=== PATIENT | male | born 1950 | race Hispanic/Latino ===

== ENCOUNTER 2018-09-16 18:32 | Emergency (ER) | payer OTHER ==
[2018-09-16] MEDS ORDERED: OXYMETAZOLINE HCL SPRAY 15 ML BOTTLE ONE (18:52)
[2018-09-16 19:09] LABS: BASOPHILS % (AUTO) 0.6 % (0.0-5.0); EOSINOPHILS % (AUTO) 5.6 % (0.0-8.0); LYMPHOCYTES % (AUTO) 23.5 % (21.0-51.0); MEAN CORPUSCULAR HEMOGLOBIN 29.8 pg (27.0-33.0); MEAN CORPUSCULAR HGB CONC 33.3 g/dL (32.0-36.0); MEAN CORPUSCULAR VOLUME 89.3 fL (79-99); MONOCYTES % (AUTO) 8.2 % (3.0-13.0); NEUTROPHILS % (AUTO) 62.1 % (40.0-77.0); NUCLEATED RED BLOOD CELLS 0.1 % (0.0-0.19); PLATELET COUNT (AUTO) 234 K/uL (130-400); RED BLOOD CELL COUNT(AUTO) 5.15 MIL/uL (4.50-6.20); RED CELL DISTRIBUTION WIDTH 13.2 % (11.0-15.5); WHITE BLOOD COUNT (AUTO) 9.8 K/uL (4.8-10.8)
[2018-09-16 19:23] LABS: CREATININE 0.8 mg/dL (0.5-1.5); POTASSIUM 3.9 mmol/L (3.5-5.1)
[2018-09-16 19:27] LABS: ALBUMIN 3.8 g/dL (3.5-5.0); BILIRUBIN,TOTAL 0.5 mg/dL (0.2-1.0); TOTAL PROTEIN, SERUM 7.6 g/dL (6.0-8.3)
[2018-09-16 20:00] LABS: INR 1.04 (0.85-1.15); PARTIAL THROMBOPLASTIN TIME 28.3 SEC (26.3-35.5); PROTHROMBIN TIME 10.9 SEC (9.6-11.6)
[2018-09-16] MEDS ORDERED: CLONIDINE HCL 0.1 MG TABLET ONE (20:01)
== END 2018-09-16 21:07 | disposition home or self-care (01) ==
LOC: EDH 18:32
DX: R04.0 Epistaxis (principal); E78.5 Hyperlipidemia, unspecified; I10 Essential (primary) hypertension; Z72.0 Tobacco use
CPT/HCPCS: 36415; 80053; 85025; 85610; 85730

== ENCOUNTER 2019-06-01 00:22 | Emergency (ER) | payer MEDICARE ==
[2019-06-01 01:04] LABS: BILIRUBIN,URINE Negative (NEGATIVE); COLOR,URINE Yellow (YELLOW); GLUCOSE, URINE (UA) Negative (NEGATIVE); KETONES,URINE Negative (NEGATIVE); LEUKOCYTE ESTERASE ,URINE Trace (NEGATIVE); NITRATE,URINE Negative (NEGATIVE); OCCULT BLOOD,URINE Large (NEGATIVE); PROTEIN,URINE Negative (NEGATIVE); UROBILINOGEN,URINE 0.2 mg/dL (0.2-1.0)
[2019-06-01 01:09] LABS: APPEARANCE,URINE CLEAR (CLEAR)
[2019-06-01 01:17] LABS: BACTERIA,URINE Few /HPF (None Seen); WBC,URINE 0-1 /HPF (0-1)
[2019-06-01 01:18] LABS: AMORPHOUS SEDIMENT,UR Few /LPF (None Seen); SQUAMOUS EPITHELIAL CELL,UR 0-2 /HPF (0-2)
== END 2019-06-01 01:54 | disposition home or self-care (01) ==
LOC: EDH 00:22
DX: R33.9 Retention of urine, unspecified (principal)
CPT/HCPCS: 51702; 81001

== ENCOUNTER 2019-06-02 16:59 | Emergency (ER) | payer MEDICARE | END 2019-06-02 17:56 | disposition home or self-care (01) | LOC: EDH 16:59 | DX: R33.9 Retention of urine, unspecified (principal); I10 Essential (primary) hypertension; E78.5 Hyperlipidemia, unspecified | CPT/HCPCS: 99281 ==

== ENCOUNTER 2019-06-06 12:46 | Emergency (ER) | payer MEDICARE ==
[2019-06-06 13:14] LABS: APPEARANCE,URINE CLOUDY (CLEAR); BILIRUBIN,URINE SMALL (NEGATIVE); COLOR,URINE YELLOW (YELLOW); GLUCOSE, URINE (UA) NEGATIVE (NEGATIVE); KETONES,URINE 5 mg/dL (NEGATIVE); LEUKOCYTE ESTERASE ,URINE SMALL (NEGATIVE); NITRATE,URINE POSITIVE (NEGATIVE); OCCULT BLOOD,URINE LARGE (NEGATIVE); PROTEIN,URINE 100 mg/dL (NEGATIVE); UROBILINOGEN,URINE 0.2 mg/dL (0.2-1.0)
[2019-06-06] MEDS ORDERED: PHENAZOPYRIDINE HCL 200 MG TABLET ONE (13:39)
[2019-06-06 13:41] LABS: BACTERIA,URINE Many /HPF (None Seen)
[2019-06-06 13:42] LABS: CALCIUM OXALATE CRYSTALS,UR Few /LPF (None Seen); SQUAMOUS EPITHELIAL CELL,UR 0-2 /HPF (0-2)
[2019-06-06] MEDS ORDERED: LIDOCAINE HCL-MPF 1% 2ML VIAL ONE (14:03)
[2019-06-06] MEDS ORDERED: CEFTRIAXONE SODIUM 1 GM ONE (14:03)
== END 2019-06-06 14:11 | disposition home or self-care (01) ==
LOC: EDH 12:46
DX: N30.00 Acute cystitis without hematuria (principal); I10 Essential (primary) hypertension; E78.5 Hyperlipidemia, unspecified; Z90.49 Acquired absence of other specified parts of digestive tract; Z72.0 Tobacco use
CPT/HCPCS: 81001; 87077; 87088; 87186; 96372; 99284; J0696; J3490

== ENCOUNTER 2019-06-09 10:48 | Emergency (ER) | payer MEDICARE | END 2019-06-09 12:20 | disposition left against medical advice (07) | LOC: EDH 10:48 | DX: Z46.6 Encounter for fitting and adjustment of urinary device (principal); I10 Essential (primary) hypertension; E78.5 Hyperlipidemia, unspecified; Z72.0 Tobacco use; Z53.21 Procedure and treatment not carried out due to patient leaving prior to being seen by health care provider ==

== ENCOUNTER 2019-06-09 16:30 | Emergency (ER) | payer MEDICARE | END 2019-06-09 17:23 | disposition home or self-care (01) | LOC: EDH 16:30 | DX: Z46.6 Encounter for fitting and adjustment of urinary device (principal); I10 Essential (primary) hypertension; E78.5 Hyperlipidemia, unspecified | CPT/HCPCS: 99281 ==

== ENCOUNTER 2020-03-20 07:05 | Emergency (ER) | payer MEDICARE ==
[2020-03-20 08:17] LABS: APPEARANCE,URINE Cloudy (CLEAR); BILIRUBIN,URINE Negative (NEGATIVE); COLOR,URINE Yellow (YELLOW); GLUCOSE, URINE (UA) Negative (NEGATIVE); KETONES,URINE Negative (NEGATIVE); LEUKOCYTE ESTERASE ,URINE Negative (NEGATIVE); NITRATE,URINE Negative (NEGATIVE); OCCULT BLOOD,URINE Small (NEGATIVE); PH,URINE 7.5 (5.0-8.0); PROTEIN,URINE Negative (NEGATIVE); UROBILINOGEN,URINE 0.2 mg/dL (0.2-1.0)
[2020-03-20 08:29] LABS: WBC,URINE 0-1 /HPF (0-1)
[2020-03-20 08:30] LABS: BACTERIA,URINE None Seen /HPF (None Seen); SQUAMOUS EPITHELIAL CELL,UR 0-2 /HPF (0-2)
[2020-03-20 09:06] LABS: BASOPHILS % (AUTO) 0.2 % (0.0-5.0); EOSINOPHILS % (AUTO) 0.1 % (0.0-8.0); HEMATOCRIT 46.7 % (42-54); MEAN CORPUSCULAR HEMOGLOBIN 29.9 pg (27.0-33.0); MEAN CORPUSCULAR HGB CONC 34.5 g/dL (32.0-36.0); MEAN CORPUSCULAR VOLUME 86.6 fL (79-99); MONOCYTES % (AUTO) 6.3 % (3.0-13.0); NEUTROPHILS % (AUTO) 82.1 % (40.0-77.0); PLATELET COUNT (AUTO) 248 K/uL (130-400); RED BLOOD CELL COUNT(AUTO) 5.39 MIL/uL (4.50-6.20); RED CELL DISTRIBUTION WIDTH 12.7 % (11.0-15.5)
[2020-03-20 09:27] LABS: CREATININE 0.8 mg/dL (0.5-1.5); POTASSIUM 4.3 mmol/L (3.5-5.1)
[2020-03-20 09:32] LABS: BILIRUBIN,TOTAL 0.9 mg/dL (0.2-1.0)
[2020-03-20] MEDS ORDERED: CEFTRIAXONE SODIUM 1 GM ONE (10:10)
[2020-03-20] MEDS ORDERED: SODIUM CHLORIDE 0.9% 50 ML IV ONE (10:11)
== END 2020-03-20 11:25 | disposition home or self-care (01) ==
LOC: EDH 07:05
DX: R33.9 Retention of urine, unspecified (principal); D72.829 Elevated white blood cell count, unspecified; I10 Essential (primary) hypertension; E78.5 Hyperlipidemia, unspecified
CPT/HCPCS: 36415; 51702; 80053; 81001; 85025; 96374; 99284; J0696; 51701

== ENCOUNTER 2020-03-24 10:05 | Emergency (ER) | payer MEDICARE | END 2020-03-24 11:24 | disposition home or self-care (01) | LOC: EDH 10:05 | DX: R33.9 Retention of urine, unspecified (principal); I10 Essential (primary) hypertension; E78.5 Hyperlipidemia, unspecified; Z90.49 Acquired absence of other specified parts of digestive tract; Z72.0 Tobacco use | CPT/HCPCS: 51701; 99281 ==

== ENCOUNTER 2020-05-07 00:27 | Emergency (ER) | payer MEDICARE ==
[2020-05-07 01:57] LABS: APPEARANCE,URINE Clear (CLEAR); BILIRUBIN,URINE Negative (NEGATIVE); COLOR,URINE Yellow (YELLOW); GLUCOSE, URINE (UA) Negative (NEGATIVE); KETONES,URINE Negative (NEGATIVE); LEUKOCYTE ESTERASE ,URINE Negative (NEGATIVE); NITRATE,URINE Negative (NEGATIVE); OCCULT BLOOD,URINE Nonhemolyzed Trace (NEGATIVE); PH,URINE 6.5 (5.0-8.0); PROTEIN,URINE Negative (NEGATIVE); UROBILINOGEN,URINE 0.2 mg/dL (0.2-1.0)
[2020-05-07 02:13] LABS: BACTERIA,URINE None Seen /HPF (None Seen); SQUAMOUS EPITHELIAL CELL,UR Rare /HPF (0-2); WBC,URINE None Seen /HPF (0-1)
== END 2020-05-07 02:14 | disposition home or self-care (01) ==
LOC: EDH 00:27
DX: R33.9 Retention of urine, unspecified (principal); E78.5 Hyperlipidemia, unspecified; I10 Essential (primary) hypertension; Z90.49 Acquired absence of other specified parts of digestive tract; Z72.0 Tobacco use
CPT/HCPCS: 51701; 81001; 87088

== ENCOUNTER 2020-06-22 19:46 | Emergency (ER) | payer MEDICARE ==
[2020-06-22 20:02] LABS: APPEARANCE,URINE CLEAR (CLEAR); BILIRUBIN,URINE NEGATIVE (NEGATIVE); GLUCOSE, URINE (UA) NEGATIVE (NEGATIVE); KETONES,URINE NEGATIVE (NEGATIVE); LEUKOCYTE ESTERASE ,URINE SMALL (NEGATIVE); NITRATE,URINE NEGATIVE (NEGATIVE); OCCULT BLOOD,URINE TRACE-INTACT (NEGATIVE); PROTEIN,URINE NEGATIVE (NEGATIVE); UROBILINOGEN,URINE 0.2 mg/dL (0.2-1.0)
[2020-06-22 20:05] LABS: COLOR,URINE STRAW (YELLOW)
[2020-06-22 20:14] LABS: RBC,URINE 0-1 /HPF (0-1)
[2020-06-22 20:15] LABS: BACTERIA,URINE Rare /HPF (None Seen); MUCUS,URINE Rare LPF (None Seen); SQUAMOUS EPITHELIAL CELL,UR Rare /HPF (0-2)
== END 2020-06-22 20:45 | disposition home or self-care (01) ==
LOC: EDH 19:46
DX: R33.9 Retention of urine, unspecified (principal); I10 Essential (primary) hypertension; E78.5 Hyperlipidemia, unspecified; Z72.0 Tobacco use
CPT/HCPCS: 51701; 81001

== ENCOUNTER 2020-08-13 23:13 | Emergency (ER) | payer MEDICARE ==
[2020-08-13] MEDS ORDERED: TAMSULOSIN HCL 0.4 MG CAP.ER.24H ONE (23:39)
[2020-08-13 23:43] LABS: BASOPHILS % (AUTO) 0.4 % (0.0-5.0); EOSINOPHILS % (AUTO) 3.8 % (0.0-8.0); LYMPHOCYTES % (AUTO) 18.5 % (21.0-51.0); MEAN CORPUSCULAR HEMOGLOBIN 30.3 pg (27.0-33.0); MEAN CORPUSCULAR HGB CONC 34.2 g/dL (32.0-36.0); MEAN CORPUSCULAR VOLUME 88.5 fL (79-99); MONOCYTES % (AUTO) 7.2 % (3.0-13.0); NEUTROPHILS % (AUTO) 69.6 % (40.0-77.0); PLATELET COUNT (AUTO) 276 K/uL (130-400); RED BLOOD CELL COUNT(AUTO) 5.65 MIL/uL (4.50-6.20); RED CELL DISTRIBUTION WIDTH 12.3 % (11.0-15.5); WHITE BLOOD COUNT (AUTO) 11.3 K/uL (4.8-10.8)
[2020-08-14] LABS: CREATININE 0.9 mg/dL (0.5-1.5); POTASSIUM 3.5 mmol/L (3.5-5.1)
[2020-08-14 00:05] LABS: ALBUMIN 4.5 g/dL (3.5-5.0); BILIRUBIN,TOTAL 0.4 mg/dL (0.2-1.0); TOTAL PROTEIN, SERUM 8.7 g/dL (6.0-8.3)
[2020-08-14 00:11] LABS: APPEARANCE,URINE Clear (CLEAR); BILIRUBIN,URINE Negative (NEGATIVE); COLOR,URINE Yellow (YELLOW); GLUCOSE, URINE (UA) Negative (NEGATIVE); KETONES,URINE Negative (NEGATIVE); LEUKOCYTE ESTERASE ,URINE Negative (NEGATIVE); NITRATE,URINE Negative (NEGATIVE); OCCULT BLOOD,URINE Trace (NEGATIVE); PROTEIN,URINE Negative (NEGATIVE); UROBILINOGEN,URINE 0.2 mg/dL (0.2-1.0)
== END 2020-08-14 01:32 | disposition home or self-care (01) ==
LOC: EDH 23:13
DX: R33.9 Retention of urine, unspecified (principal); N32.0 Bladder-neck obstruction; I10 Essential (primary) hypertension; E78.5 Hyperlipidemia, unspecified; Z72.0 Tobacco use
CPT/HCPCS: 36415; 51702; 80053; 81003; 85025

== ENCOUNTER 2020-09-03 22:25 | Emergency (ER) | payer MEDICARE ==
[2020-09-03 23:16] LABS: APPEARANCE,URINE Clear (CLEAR); BILIRUBIN,URINE Negative (NEGATIVE); COLOR,URINE Yellow (YELLOW); GLUCOSE, URINE (UA) Negative (NEGATIVE); KETONES,URINE Negative (NEGATIVE); LEUKOCYTE ESTERASE ,URINE Negative (NEGATIVE); NITRATE,URINE Negative (NEGATIVE); OCCULT BLOOD,URINE Small (NEGATIVE); PROTEIN,URINE Negative (NEGATIVE); UROBILINOGEN,URINE 0.2 mg/dL (0.2-1.0)
[2020-09-03 23:45] LABS: BACTERIA,URINE None Seen /HPF (None Seen); RBC,URINE 0-1 /HPF (0-1); WBC,URINE None Seen /HPF (0-1)
[2020-09-06] MEDS ORDERED: LISI10TA7 PO (09:32)
== END 2020-09-03 23:34 | disposition home or self-care (01) ==
LOC: EDH 22:25
DX: R33.9 Retention of urine, unspecified (principal); I10 Essential (primary) hypertension; E78.5 Hyperlipidemia, unspecified; Z72.0 Tobacco use
CPT/HCPCS: 51702; 81001; 87088

== ENCOUNTER 2020-09-04 16:32 | Inpatient (IN) | payer MEDICARE ==
[~2020-09-04] VITALS: Ht 162.6 cm; Wt 78.3 kg
[2020-09-04] MEDS ORDERED: FENTANYL CITRATE PF 50 MCG/1 ML 2ML VIAL ONE (18:12)
[2020-09-04] MEDS ORDERED: ONDANSETRON 4MG INJ ONE (18:12)
[2020-09-04 18:27] LABS: BASOPHILS % (AUTO) 0.2 % (0.0-5.0); EOSINOPHILS % (AUTO) 0.7 % (0.0-8.0); HEMATOCRIT 47.1 % (42-54); LYMPHOCYTES % (AUTO) 10.3 % (21.0-51.0); MEAN CORPUSCULAR HEMOGLOBIN 30.5 pg (27.0-33.0); MEAN CORPUSCULAR HGB CONC 34.6 g/dL (32.0-36.0); MONOCYTES % (AUTO) 6.4 % (3.0-13.0); PLATELET COUNT (AUTO) 262 K/uL (130-400); RED BLOOD CELL COUNT(AUTO) 5.35 MIL/uL (4.50-6.20); RED CELL DISTRIBUTION WIDTH 12.6 % (11.0-15.5); WHITE BLOOD COUNT (AUTO) 16.8 K/uL (4.8-10.8)
[2020-09-04 18:46] LABS: CREATININE 0.9 mg/dL (0.5-1.5); POTASSIUM 3.6 mmol/L (3.5-5.1)
[2020-09-04 18:47] LABS: INR 1.1 (0.85-1.15); PROTHROMBIN TIME 11.7 SEC (9.6-11.6)
[2020-09-04] MEDS ORDERED: 0.9% NACL 500ML IV.SOLN 500 ML IV ONE (18:47)
[2020-09-04 18:48] LABS: PARTIAL THROMBOPLASTIN TIME 26.5 SEC (26.3-35.5)
[2020-09-04 18:50] LABS: ALBUMIN 4.1 g/dL (3.5-5.0); BILIRUBIN,TOTAL 1.5 mg/dL (0.2-1.0); TOTAL PROTEIN, SERUM 7.9 g/dL (6.0-8.3)
[2020-09-04] MEDS ORDERED: MORPHINE 2 MG SYG IV PRN (20:00)
[2020-09-04] MEDS: 0.9%NACL 1000ML 1,000 ML IV SCH (20:00)
[2020-09-04] MEDS ORDERED: ONDANSETRON 4MG INJ IV PRN (20:00)
[2020-09-04] MEDS ORDERED: LACTULOSE 20 GM/30 ML UDCUP PO PRN (20:00)
[2020-09-04] MEDS: CEFTRIAXONE 1G VIAL IV SCH (20:00)
[2020-09-04] MEDS ORDERED: IOHEXOL-350 75 ML VIAL IV ONE (20:35)
[2020-09-04] MEDS: FAMOTIDINE 20MG TAB PO SCH (21:00)
[2020-09-04] MEDS ORDERED: FAMOTIDINE 20MG TAB ONE (23:09)
[2020-09-04] MEDS ORDERED: CEFTRIAXONE 1G VIAL ONE (23:10)
[2020-09-05] VITALS (23 sets, daily range): BP systolic 114–180; BP diastolic 57–91
[2020-09-05 05:21] LABS: BASOPHILS % (AUTO) 0.3 % (0.0-5.0); EOSINOPHILS % (AUTO) 2.3 % (0.0-8.0); LYMPHOCYTES % (AUTO) 16.2 % (21.0-51.0); MEAN CORPUSCULAR HEMOGLOBIN 30.3 pg (27.0-33.0); MEAN CORPUSCULAR HGB CONC 34.2 g/dL (32.0-36.0); MEAN CORPUSCULAR VOLUME 88.7 fL (79-99); MONOCYTES % (AUTO) 8.5 % (3.0-13.0); NEUTROPHILS % (AUTO) 72.2 % (40.0-77.0); PLATELET COUNT (AUTO) 223 K/uL (130-400); RED BLOOD CELL COUNT(AUTO) 4.85 MIL/uL (4.50-6.20); RED CELL DISTRIBUTION WIDTH 12.6 % (11.0-15.5)
[2020-09-05 05:47] LABS: CREATININE 0.8 mg/dL (0.5-1.5); POTASSIUM 3.7 mmol/L (3.5-5.1)
[2020-09-05] MEDS: 0.9%NACL 1000ML 1,000 ML IV SCH ×2 (06:00→20:26)
[2020-09-05] MEDS: FAMOTIDINE 20MG TAB PO SCH ×2 (09:00→20:25)
[2020-09-05] MEDS ORDERED: LACTATED RINGERS 1000ML 1,000 ML IV ONE (11:52)
[2020-09-05] MEDS ORDERED: CITRIC ACID/SODIUM CITRATE 30 ML UDCUP ONE (11:59)
[2020-09-05] MEDS ORDERED: LIDOCAINE PF 100MG/5ML (2%) SYRINGE 5ML ONE (13:02)
[2020-09-05] MEDS ORDERED: SUCCINYLCHOLINE 200MG/10ML SYR ONE (13:02)
[2020-09-05] MEDS ORDERED: DEXAMETHASONE SOD PHOSPHATE 10MG/ML 1ML VIAL ONE (13:02)
[2020-09-05] MEDS ORDERED: MIDAZOLAM HCL 1 MG/ML 2ML VIAL ONE (13:02)
[2020-09-05] MEDS ORDERED: NEOSTIGMINE 5MG/5ML SYR IV ONE (13:03)
[2020-09-05] MEDS ORDERED: GLYCOPYRROLATE 1 MG/5 ML SYRINGE ONE (13:03)
[2020-09-05] MEDS ORDERED: ONDANSETRON 4MG INJ ONE (13:03)
[2020-09-05] MEDS ORDERED: FENTANYL CITRATE PF 50 MCG/1 ML 2ML VIAL ONE (13:03)
[2020-09-05] MEDS ORDERED: ROCURONIUM 10MG/1ML SYR 10 MG/ML ML ONE (13:03)
[2020-09-05] MEDS ORDERED: PROPOFOL 10 MG/ML 20ML VIAL IV ONE (13:03)
[2020-09-05] MEDS ORDERED: PHENYLEPHRINE HCL 10 MG/ML 1ML VIAL IV ONE (13:27)
[2020-09-05] MEDS: ACETAMINOPHEN 325 MG TAB PO PRN (20:25)
[2020-09-05] MEDS: CEFTRIAXONE 1G VIAL IV SCH (20:25)
[2020-09-06] VITALS (7 sets, daily range): BP systolic 123–154; BP diastolic 63–74
[2020-09-06] MEDS: ACETAMINOPHEN 325 MG TAB PO PRN ×2 (00:08→20:36)
[2020-09-06] MEDS ORDERED: 0.9%NACL 1000ML 1,000 ML IV ONE (00:15)
[2020-09-06 00:32] LABS: HEMATOCRIT 40.1 % (42-54); MEAN CORPUSCULAR HEMOGLOBIN 30.6 pg (27.0-33.0); MEAN CORPUSCULAR HGB CONC 34.2 g/dL (32.0-36.0); MEAN CORPUSCULAR VOLUME 89.5 fL (79-99); PLATELET COUNT (AUTO) 199 K/uL (130-400); RED BLOOD CELL COUNT(AUTO) 4.48 MIL/uL (4.50-6.20); RED CELL DISTRIBUTION WIDTH 12.6 % (11.0-15.5); WHITE BLOOD COUNT (AUTO) 11.8 K/uL (4.8-10.8)
[2020-09-06 00:46] LABS: CARBON DIOXIDE 28 mmol/L (21-32); CHLORIDE 103 mmol/L (101-111); GLOMERULAR FILTR. RATE CALC 79 mL/min (>60); GLUCOSE,RANDOM 127 mg/dL (70-105); POTASSIUM 3.6 mmol/L (3.5-5.1); SODIUM SERUM 140 mmol/L (136-145); UREA NITROGEN, BLOOD 11 mg/dL (7-18)
[2020-09-06 00:51] LABS: ALANINE AMINOTRANSFERASE 75 U/L (12-78); ALBUMIN 3.2 g/dL (3.5-5.0); ASPARTATE AMINOTRANSFERASE 98 U/L (10-37); BILIRUBIN,TOTAL 0.9 mg/dL (0.2-1.0); TOTAL PROTEIN, SERUM 6.5 g/dL (6.0-8.3)
[2020-09-06 00:57] LABS: BASOPHILS % (MANUAL) 1 % (0-2); EOSINOPHILS % (MANUAL) 3 % (1-6); LYMPHOCYTES % (MANUAL) 20 % (22-44); MAN.DIFF COMMENT-IMPRESSION MANUAL DIFFERENTIAL; MONOCYTES % (MANUAL) 10 % (2-9); SEGMENTED NEUTROPHILS % 66 % (40-70)
[2020-09-06 00:58] LABS: PLATELET MORPHOLOGY COMMENT ADEQUATE
[2020-09-06 01:14] LABS: APPEARANCE,URINE Clear (CLEAR); BILIRUBIN,URINE Negative (NEGATIVE); COLOR,URINE Orange (YELLOW); GLUCOSE, URINE (UA) Negative (NEGATIVE); KETONES,URINE Negative (NEGATIVE); LEUKOCYTE ESTERASE ,URINE Small (NEGATIVE); NITRATE,URINE Negative (NEGATIVE); OCCULT BLOOD,URINE Large (NEGATIVE); PROTEIN,URINE Trace mg/dL (NEGATIVE)
[2020-09-06 01:55] LABS: BACTERIA,URINE Few /HPF (None Seen)
[2020-09-06] MEDS: 0.9%NACL 1000ML 1,000 ML IV SCH (09:25)
[2020-09-06] MEDS: FAMOTIDINE 20MG TAB PO SCH ×2 (09:26→20:35)
[2020-09-06] MEDS ORDERED: LISI10TA24 PO (09:32)
[2020-09-06] MEDS: CEFTRIAXONE 1G VIAL IV SCH (20:35)
[2020-09-06] MEDS ORDERED: AZITHROMYCIN 500MG+NS 250ML 250 ML IV ONE (21:47)
[2020-09-06] MEDS: AZITHROMYCIN 500MG+NS 250ML 250 ML IV SCH (21:51)
[2020-09-06 23:40] LABS: CRP QUANTITATIVE 59.8 mg/L (0.00-9.0)
[2020-09-07] MEDS: 0.9%NACL 1000ML 1,000 ML IV SCH ×2 (00:46→17:05)
[2020-09-07] MEDS ORDERED: ERGOCALCIFEROL (VITAMIN D2) 50,000 UNIT CAPSULE PO ONE (01:45)
[2020-09-07 03:45] VITALS: BP 149/71
[2020-09-07 07:00] VITALS: BP 149/75
[2020-09-07 07:18] LABS: BASOPHILS % (AUTO) 0.3 % (0.0-5.0); EOSINOPHILS % (AUTO) 2.3 % (0.0-8.0); HEMATOCRIT 37.6 % (42-54); LYMPHOCYTES % (AUTO) 16.4 % (21.0-51.0); MEAN CORPUSCULAR HEMOGLOBIN 29.9 pg (27.0-33.0); MEAN CORPUSCULAR VOLUME 87.9 fL (79-99); NEUTROPHILS % (AUTO) 65.2 % (40.0-77.0); PLATELET COUNT (AUTO) 175 K/uL (130-400); RED BLOOD CELL COUNT(AUTO) 4.28 MIL/uL (4.50-6.20); RED CELL DISTRIBUTION WIDTH 12.5 % (11.0-15.5); WHITE BLOOD COUNT (AUTO) 7.7 K/uL (4.8-10.8)
[2020-09-07 07:31] LABS: CREATININE 0.7 mg/dL (0.5-1.5)
[2020-09-07 07:32] LABS: POTASSIUM 2.9 mmol/L (3.5-5.1)
[2020-09-07] MEDS ORDERED: LIDOCAINE HCL-MPF 1% 2ML VIAL IV PRN (08:00)
[2020-09-07] MEDS ORDERED: POTASSIUM CHLORIDE 20MEQ/100ML 100 ML IV PRN (08:00)
[2020-09-07] MEDS: ZINC SULFATE 220 CAPSULE PO SCH (09:15)
[2020-09-07] MEDS: FAMOTIDINE 20MG TAB PO SCH ×2 (09:15→20:09)
[2020-09-07] MEDS: ASCORBIC ACID 500 MG TAB PO SCH (09:15)
[2020-09-07] MEDS: POTASSIUM CHLORIDE 10% ELIXIR 20 MEQ/15 ML UDCUP PO PRN ×3 (09:32→17:04)
[2020-09-07 11:00] VITALS: BP 158/79
[2020-09-07 16:00] VITALS: BP 165/83
[2020-09-07 20:00] VITALS: BP 153/73
[2020-09-07] MEDS: CEFTRIAXONE 1G VIAL IV SCH (20:09)
[2020-09-07] MEDS: AZITHROMYCIN 500MG+NS 250ML 250 ML IV SCH (22:07)
[2020-09-08] VITALS: BP 166/79
[2020-09-08] MEDS: ACETAMINOPHEN 325 MG TAB PO PRN ×3 (03:45→20:10)
[2020-09-08 04:00] VITALS: BP 163/82
[2020-09-08 08:46] VITALS: BP 149/74
[2020-09-08] MEDS: ZINC SULFATE 220 CAPSULE PO SCH (09:17)
[2020-09-08] MEDS: ASCORBIC ACID 500 MG TAB PO SCH (09:17)
[2020-09-08] MEDS: FAMOTIDINE 20MG TAB PO SCH ×2 (09:17→20:08)
[2020-09-08 12:29] VITALS: BP 142/71
[2020-09-08 17:14] VITALS: BP 158/77
[2020-09-08] MEDS: 0.9%NACL 1000ML 1,000 ML IV SCH (17:17)
[2020-09-08 18:38] LABS: CREATININE 0.8 mg/dL (0.5-1.5); POTASSIUM 3.3 mmol/L (3.5-5.1)
[2020-09-08] MEDS: CEFTRIAXONE 1G VIAL IV SCH (19:56)
[2020-09-08 20:00] VITALS: BP 160/76
[2020-09-08] MEDS: AZITHROMYCIN 500MG+NS 250ML 250 ML IV SCH (22:45)
[2020-09-09] VITALS: BP 140/72
[2020-09-09] MEDS: KCL 20 MEQ ERTAB PO PRN ×3 (01:55→06:00)
[2020-09-09] MEDS: 0.9%NACL 1000ML 1,000 ML IV SCH (02:46)
[2020-09-09 04:00] VITALS: BP 145/71
[2020-09-09 05:21] LABS: BASOPHILS % (AUTO) 0.3 % (0.0-5.0); EOSINOPHILS % (AUTO) 3.3 % (0.0-8.0); HEMATOCRIT 37.9 % (42-54); LYMPHOCYTES % (AUTO) 16.2 % (21.0-51.0); MEAN CORPUSCULAR HGB CONC 34.6 g/dL (32.0-36.0); MEAN CORPUSCULAR VOLUME 86.9 fL (79-99); MONOCYTES % (AUTO) 12.5 % (3.0-13.0); NEUTROPHILS % (AUTO) 67.3 % (40.0-77.0); PLATELET COUNT (AUTO) 201 K/uL (130-400); RED BLOOD CELL COUNT(AUTO) 4.36 MIL/uL (4.50-6.20); RED CELL DISTRIBUTION WIDTH 12.4 % (11.0-15.5)
[2020-09-09 07:30] VITALS: BP 135/78
[2020-09-09] MEDS: ZINC SULFATE 220 CAPSULE PO SCH (08:51)
[2020-09-09] MEDS: ASCORBIC ACID 500 MG TAB PO SCH (08:51)
[2020-09-09] MEDS: FAMOTIDINE 20MG TAB PO SCH ×2 (08:51→21:22)
[2020-09-09 11:00] VITALS: BP 121/59
[2020-09-09 16:00] VITALS: BP 118/61
[2020-09-09] MEDS ORDERED: 0.9%NACL 50ML 50 ML IV ONE (20:02)
[2020-09-09] MEDS: CEFTRIAXONE 1G VIAL IV SCH (20:08)
[2020-09-09 20:28] VITALS: BP 142/68
[2020-09-09] MEDS: ACETAMINOPHEN 325 MG TAB PO PRN (21:27)
[2020-09-09] MEDS: AZITHROMYCIN 500MG+NS 250ML 250 ML IV SCH (21:28)
[2020-09-10 00:28] VITALS: BP 142/75
[2020-09-10 04:00] VITALS: BP 157/83
[2020-09-10 05:32] LABS: HEMATOCRIT 37.9 % (42-54); MEAN CORPUSCULAR HEMOGLOBIN 30.4 pg (27.0-33.0); MEAN CORPUSCULAR HGB CONC 34.6 g/dL (32.0-36.0); MEAN CORPUSCULAR VOLUME 87.9 fL (79-99); RED BLOOD CELL COUNT(AUTO) 4.31 MIL/uL (4.50-6.20); RED CELL DISTRIBUTION WIDTH 12.7 % (11.0-15.5); WHITE BLOOD COUNT (AUTO) 4.8 K/uL (4.8-10.8)
[2020-09-10 06:06] LABS: ALANINE AMINOTRANSFERASE 53 U/L (12-78); ASPARTATE AMINOTRANSFERASE 49 U/L (10-37); BILIRUBIN,TOTAL 0.3 mg/dL (0.2-1.0); CARBON DIOXIDE 26 mmol/L (21-32); CHLORIDE 105 mmol/L (101-111); CREATININE 0.7 mg/dL (0.5-1.5); GLOMERULAR FILTR. RATE CALC 118 mL/min (>60); GLUCOSE,RANDOM 88 mg/dL (70-105); POTASSIUM 3.5 mmol/L (3.5-5.1); SODIUM SERUM 140 mmol/L (136-145); TOTAL PROTEIN, SERUM 6.2 g/dL (6.0-8.3); UREA NITROGEN, BLOOD 10 mg/dL (7-18)
[2020-09-10 08:00] VITALS: BP 162/63
[2020-09-10] MEDS: FAMOTIDINE 20MG TAB PO SCH (08:41)
[2020-09-10] MEDS: ASCORBIC ACID 500 MG TAB PO SCH (08:41)
[2020-09-10] MEDS: ZINC SULFATE 220 CAPSULE PO SCH (08:41)
[2020-09-10] MEDS ORDERED: LEVO500T90 PO (09:21)
[2020-09-10] MEDS ORDERED: KCL 20 MEQ ERTAB PO SCH (09:52)
[2020-09-10] MEDS ORDERED: LISINOPRIL 10 MG TABLET PO SCH (09:52)
[2020-09-10 12:00] VITALS: BP 141/86
== END 2020-09-10 14:47 | disposition home or self-care (01) | DRG 698 ==
LOC: EDH 16:32 → EDHIP 19:57 → 3DH 09-05 08:47 → 4AH 09-06 22:48
PROVIDERS: ADMIT Family Medicine; ATTEND Family Medicine
PROC: 0T9B80Z Drainage of Bladder with Drainage Device, Via Natural or Artificial Opening Endoscopic (ICD-10-PCS; principal; 2020-09-05 13:32)
PROC: BT101ZZ Fluoroscopy of Bladder using Low Osmolar Contrast (ICD-10-PCS; 2020-09-05 13:32)
DX: T83.83XA Hemorrhage due to genitourinary prosthetic devices, implants and grafts, initial encounter (principal); U07.1 COVID-19; A41.9 Sepsis, unspecified organism; N39.0 Urinary tract infection, site not specified; R31.0 Gross hematuria; R33.8 Other retention of urine; Y84.6 Urinary catheterization as the cause of abnormal reaction of the patient, or of later complication, without mention of misadventure at the time of the procedure; E03.9 Hypothyroidism, unspecified; E66.9 Obesity, unspecified; E78.5 Hyperlipidemia, unspecified; I10 Essential (primary) hypertension; N40.1 Benign prostatic hyperplasia with lower urinary tract symptoms; E87.6 Hypokalemia; R53.81 Other malaise; Z68.29 Body mass index [BMI] 29.0-29.9, adult; Z90.49 Acquired absence of other specified parts of digestive tract
CPT/HCPCS: 36415; 51702; 71045; 74177; 74430; 80048; 80053; 81001; 82728; 83605; 83615; 84132; 84145; 85025; 85027; 85378; 85610; 85730; 86140; 87040; 87088; 87426; 93005; A4354; C1758; C1769; G0378; J0330; J0456; J0696; J1100; J2001; J2250; J2370; J2405; J2704; J2710; J3010; J3480; J3490; J7030; J7040; J7120; Q9967

== ENCOUNTER 2021-07-01 01:14 | Emergency (ER) | payer MEDICARE ==
[~2021-07-01] VITALS: Ht 172.7 cm; Wt 76.2 kg
[~2021-07-01 01:14] MED LIST: LEVO500T90 PO; LISI10TA24 PO
[2021-07-01 02:06] LABS: APPEARANCE,URINE Clear (CLEAR); BILIRUBIN,URINE Negative (NEGATIVE); COLOR,URINE Yellow (YELLOW); GLUCOSE, URINE (UA) Negative (NEGATIVE); KETONES,URINE Negative (NEGATIVE); LEUKOCYTE ESTERASE ,URINE Negative (NEGATIVE); NITRATE,URINE Negative (NEGATIVE); OCCULT BLOOD,URINE Trace (NEGATIVE); PH,URINE 6.5 (5.0-8.0); PROTEIN,URINE Negative (NEGATIVE)
[2021-07-01 04:01] VITALS: BP 140/70
== END 2021-07-01 04:03 | disposition home or self-care (01) ==
LOC: EDH 01:14
DX: R33.9 Retention of urine, unspecified (principal); I10 Essential (primary) hypertension; Z79.899 Other long term (current) drug therapy
CPT/HCPCS: 51702; 81003; 87088

== ENCOUNTER 2021-07-03 09:07 | Emergency (ER) | payer MEDICARE ==
[~2021-07-03] VITALS: Ht 157.5 cm; Wt 93.9 kg
[2021-07-03 09:11] VITALS: BP 170/89
== END 2021-07-03 09:46 | disposition home or self-care (01) ==
LOC: EDH 09:07
DX: T83.021A Displacement of indwelling urethral catheter, initial encounter (principal); R33.9 Retention of urine, unspecified; I10 Essential (primary) hypertension; Z79.899 Other long term (current) drug therapy; Y83.8 Other surgical procedures as the cause of abnormal reaction of the patient, or of later complication, without mention of misadventure at the time of the procedure; Y92.89 Other specified places as the place of occurrence of the external cause
CPT/HCPCS: 99281

== ENCOUNTER 2021-12-19 04:58 | Emergency (ER) | payer MEDICARE ==
[~2021-12-19] VITALS: Ht 165.1 cm; Wt 83.0 kg
[2021-12-19 05:47] LABS: APPEARANCE,URINE Clear (CLEAR); BILIRUBIN,URINE Negative (NEGATIVE); COLOR,URINE Yellow (YELLOW); GLUCOSE, URINE (UA) Negative (NEGATIVE); KETONES,URINE Negative (NEGATIVE); LEUKOCYTE ESTERASE ,URINE Large (NEGATIVE); NITRATE,URINE Negative (NEGATIVE); OCCULT BLOOD,URINE Negative (NEGATIVE); PH,URINE 6.5 (5.0-8.0); PROTEIN,URINE Negative (NEGATIVE); UROBILINOGEN,URINE 0.2 mg/dL (0.2-1.0)
[2021-12-19 05:51] LABS: BASOPHILS % (AUTO) 0.6 % (0.0-5.0); EOSINOPHILS % (AUTO) 4.9 % (0.0-8.0); HEMATOCRIT 43.9 % (42-54); LYMPHOCYTES % (AUTO) 19.2 % (21.0-51.0); MEAN CORPUSCULAR HEMOGLOBIN 29.1 pg (27.0-33.0); MEAN CORPUSCULAR HGB CONC 33.3 g/dL (32.0-36.0); MEAN CORPUSCULAR VOLUME 87.6 fL (79-99); MONOCYTES % (AUTO) 6.8 % (3.0-13.0); NEUTROPHILS % (AUTO) 68.2 % (40.0-77.0); PLATELET COUNT (AUTO) 252 K/uL (130-400); RED BLOOD CELL COUNT(AUTO) 5.01 MIL/uL (4.50-6.20); RED CELL DISTRIBUTION WIDTH 12.7 % (11.0-15.5)
[2021-12-19 05:59] LABS: BACTERIA,URINE None Seen /HPF (None Seen); RBC,URINE None Seen /HPF (0-1)
[2021-12-19 06:00] LABS: SQUAMOUS EPITHELIAL CELL,UR Rare /HPF (0-2)
[2021-12-19 06:03] LABS: CREATININE 0.9 mg/dL (0.5-1.5); POTASSIUM 3.7 mmol/L (3.5-5.1)
[2021-12-19] MEDS ORDERED: LEVO500T90 PO (06:28)
[2021-12-19] MEDS ORDERED: LEVOFLOXACIN 500 MG TABLET PO SCH (06:30)
[2021-12-19 06:39] VITALS: BP 154/68
== END 2021-12-19 06:51 | disposition home or self-care (01) ==
LOC: EDH 04:58
DX: R33.9 Retention of urine, unspecified (principal); N39.0 Urinary tract infection, site not specified; I10 Essential (primary) hypertension; Z79.899 Other long term (current) drug therapy
CPT/HCPCS: 36415; 51702; 80048; 81001; 85025; 87088

== ENCOUNTER 2021-12-27 20:49 | Emergency (ER) | payer MEDICARE ==
[~2021-12-27] VITALS: Ht 160 cm; Wt 81.6 kg
[2021-12-27 22:25] LABS: BASOPHILS % (AUTO) 0.5 % (0.0-5.0); EOSINOPHILS % (AUTO) 2.1 % (0.0-8.0); HEMATOCRIT 46.5 % (42-54); LYMPHOCYTES % (AUTO) 14.2 % (21.0-51.0); MEAN CORPUSCULAR HEMOGLOBIN 30.1 pg (27.0-33.0); MEAN CORPUSCULAR HGB CONC 34.2 g/dL (32.0-36.0); MEAN CORPUSCULAR VOLUME 88.1 fL (79-99); MONOCYTES % (AUTO) 6.4 % (3.0-13.0); NEUTROPHILS % (AUTO) 76.3 % (40.0-77.0); PLATELET COUNT (AUTO) 286 K/uL (130-400); RED BLOOD CELL COUNT(AUTO) 5.28 MIL/uL (4.50-6.20); WHITE BLOOD COUNT (AUTO) 10.9 K/uL (4.8-10.8)
[2021-12-27 22:35] LABS: CREATININE 0.9 mg/dL (0.5-1.5); POTASSIUM 3.4 mmol/L (3.5-5.1)
[2021-12-27 22:40] LABS: ALBUMIN 3.8 g/dL (3.5-5.0); BILIRUBIN,TOTAL 0.7 mg/dL (0.2-1.0); TOTAL PROTEIN, SERUM 7.7 g/dL (6.0-8.3)
[2021-12-27 22:48] LABS: APPEARANCE,URINE CLEAR (CLEAR); BILIRUBIN,URINE NEGATIVE (NEGATIVE); GLUCOSE, URINE (UA) NEGATIVE (NEGATIVE); KETONES,URINE NEGATIVE (NEGATIVE); LEUKOCYTE ESTERASE ,URINE MODERATE (NEGATIVE); NITRATE,URINE POSITIVE (NEGATIVE); OCCULT BLOOD,URINE MODERATE (NEGATIVE); PROTEIN,URINE TRACE mg/dL (NEGATIVE)
[2021-12-27 23:02] LABS: COLOR,URINE ORANGE (YELLOW)
[2021-12-27 23:05] VITALS: BP 152/75
[2021-12-27 23:13] LABS: BACTERIA,URINE Many /HPF (None Seen); RBC,URINE None Seen /HPF (0-1)
[2021-12-27] MEDS ORDERED: CEPH500B PO (23:20)
[2021-12-27] MEDS ORDERED: CEFTRIAXONE 1G VIAL IM ONE (23:30)
[2021-12-27] MEDS ORDERED: CEFTRIAXONE 1G VIAL ONE (23:33)
== END 2021-12-27 23:55 | disposition home or self-care (01) ==
LOC: EDH 20:49
DX: R33.9 Retention of urine, unspecified (principal); N39.0 Urinary tract infection, site not specified; I10 Essential (primary) hypertension; Z79.899 Other long term (current) drug therapy
CPT/HCPCS: 36415; 51702; 80053; 81001; 85025; 87077; 87088; 87186; 96372; 99284; J0696

== ENCOUNTER 2022-01-11 04:23 | Emergency (ER) | payer MEDICARE ==
[~2022-01-11] VITALS: Ht 170.2 cm; Wt 72.6 kg
[~2022-01-11 04:23] MED LIST changes: +CEPH500B PO
[2022-01-11 04:27] VITALS: BP 172/99
[2022-01-11 05:10] LABS: BASOPHILS % (AUTO) 0.5 % (0.0-5.0); EOSINOPHILS % (AUTO) 2.5 % (0.0-8.0); HEMATOCRIT 44.2 % (42-54); LYMPHOCYTES % (AUTO) 18.5 % (21.0-51.0); MEAN CORPUSCULAR HEMOGLOBIN 29.3 pg (27.0-33.0); MEAN CORPUSCULAR HGB CONC 33.3 g/dL (32.0-36.0); MEAN CORPUSCULAR VOLUME 88.2 fL (79-99); NEUTROPHILS % (AUTO) 69.2 % (40.0-77.0); PLATELET COUNT (AUTO) 245 K/uL (130-400); RED BLOOD CELL COUNT(AUTO) 5.01 MIL/uL (4.50-6.20); RED CELL DISTRIBUTION WIDTH 12.8 % (11.0-15.5); WHITE BLOOD COUNT (AUTO) 10.7 K/uL (4.8-10.8)
[2022-01-11 05:12] LABS: APPEARANCE,URINE Clear (CLEAR); BILIRUBIN,URINE Negative (NEGATIVE); COLOR,URINE Yellow (YELLOW); GLUCOSE, URINE (UA) Negative (NEGATIVE); KETONES,URINE Negative (NEGATIVE); LEUKOCYTE ESTERASE ,URINE Trace (NEGATIVE); NITRATE,URINE Positive (NEGATIVE); OCCULT BLOOD,URINE Large (NEGATIVE); PH,URINE 6.5 (5.0-8.0); PROTEIN,URINE Negative (NEGATIVE); UROBILINOGEN,URINE 0.2 mg/dL (0.2-1.0)
[2022-01-11 05:21] LABS: CREATININE 0.7 mg/dL (0.5-1.5); POTASSIUM 3.4 mmol/L (3.5-5.1)
[2022-01-11 05:24] LABS: BACTERIA,URINE Moderate /HPF (None Seen)
[2022-01-11] MEDS ORDERED: CEFTRIAXONE 1G VIAL IVP ONE (06:00)
== END 2022-01-11 06:39 | disposition home or self-care (01) ==
LOC: EDH 04:23
DX: R33.9 Retention of urine, unspecified (principal); Z79.899 Other long term (current) drug therapy
CPT/HCPCS: 36415; 51702; 80048; 81001; 85025; 87077; 87088; 87186; 96374; 99284; J0696